=== PATIENT | female | born 1965 | race Caucasian/White ===

== ENCOUNTER 2019-03-17 17:23 | Observation (INO) ==
[2019-03-17] MEDS ORDERED: IOPAMIDOL 100 ML BOTTLE IV ONE (17:24)
[2019-03-17] MEDS ORDERED: ONDANSETRON 4 MG/2 ML VIAL IV ONE (17:37)
[2019-03-17] MEDS ORDERED: HYDROmorphone 2 MG/ML VIAL IV PRN ×2 (17:37→22:12)
[2019-03-17] MEDS ORDERED: 0.9 % SODIUM CHLORIDE 1,000 ML IV SCH ×3 (17:45→22:12)
[2019-03-17 17:50] LABS: POC Blood Urea Nitrogen 18 mg/dl (6-20); POC CO2 24 mmol/L (22-30); POC Calcium, Ionized 1.03 mmol/L (1.16-1.32); POC Chloride 96 mmol/L (96-108); POC Creatinine 0.6 mg/dl (0.6-1.1); POC Glucose, Random 258 mg/dL (70-105); POC Potassium 3.4 mmol/L (3.3-5.1); POC Sodium 134 mmol/L (133-145)
[2019-03-17 18:16] LABS: Basophils # (Auto) 0 K/mcL (0.0-0.3); Basophils % (Auto) 0 % (0.0-2.0); Eosinophils # (Auto) 0 K/mcL (0.0-0.7); Eosinophils % (Auto) 0.1 % (0.0-7.0); Granulocytes % (Auto) 89.3 % (38.0-78.0); Hematocrit 41.1 % (36.0-48.0); Hemoglobin 13.6 g/dL (12.0-15.0); Lymphocytes # (Auto) 1.1 K/mcL (1.5-4.8); Lymphocytes % (Auto) 9.7 % (15.5-49.0); Mean Cell Volume 87.7 fL (80.0-100.0); Mean Corpuscular HGB Conc 33.1 g/dL (31.0-36.0); Monocytes # (Auto) 0.1 K/mcL (0.1-0.9); Monocytes % (Auto) 0.9 % (1.0-12.0); Platelet Count 225 K/mcL (140-440); RBC 4.68 M/mcL (4.00-5.20); Red Cell Distribution Width 12.1 % (11.5-14.5); WBC 11.7 K/mcL (4.5-11.0)
[2019-03-17 18:33] LABS: ALT/SGPT 36 U/l (0-40); AST/SGOT 20 U/l (0-37); Albumin 4.3 gm/dL (3.2-5.2); Albumin/Globulin Ratio 1.6 (1.0-2.3); Alkaline Phosphatase 88 U/L (39-117); Bilirubin,Total 0.4 mg/dL (0.0-1.0); Blood Urea Nitrogen 18 mg/dl (6-20); Calcium 8.9 mg/dl (8.6-10.4); Carbon Dioxide 23 mmol/L (22-30); Globulin 2.7 gm/dL (2.2-3.7); Glomerular Filtration Rate 84; Glucose 261 mg/dL (70-105)
[2019-03-17 18:44] LABS: Chloride 92 mmol/L (96-108)
--- NOTE | 2019-03-17 18:56 | Emergency Department Note ---
SOB HPI - General Chief Complaint: Shortness of Breath/Dyspnea Stated Complaint: low sats Time Seen by Provider: 03/17/19 17:28 Source: patient, family Mode of arrival: other Limitations: no limitations - History of Present Illness 53-year-old female was brought over by the nurse diplomatic officer Xiomara, status post recovery from surgery. She had a bladder stimulator removed by Dr. Arce. After the surgery she became tachycardic tachypneic and short of breath requiring oxygen. She could not take a couple steps without requiring oxygen. She does not have a history of lung diseases. EKG and chest x-ray over there were unrevealing. She has brought over for further evaluation - Related Data Home Medications Medication Instructions Recorded Confirmed amlodipine 5 mg tablet 5 mg PO DAILY 02/28/19 03/17/19 atorvastatin 40 mg tablet 40 mg PO DAILY 02/28/19 03/17/19 estradiol 1 mg tablet 1 mg PO DAILY 02/28/19 03/17/19 solifenacin 5 mg tablet 5 mg PO DAILY 02/28/19 03/17/19 DULoxetine [Cymbalta] 20 mg PO HS 03/14/19 03/17/19 Previous Rx's Medication Instructions Recorded metformin 1,000 mg tablet 1,000 mg PO BID #60 tab 01/27/19 Allergies Allergy/AdvReac Type Severity Reaction Status Date / Time No Known Drug Allergies Allergy Verified 03/17/19 17:24 Review of Systems All systems ED: reviewed and negative except as stated. Past Medical History - Past Medical History Attestation: Yes: The following information was validated with the patient. [facility] Narrative: Family History (Last Reviewed 03/16/19 @ 12:40 by YOSEPH Garcia) Mother Stroke Psychiatric disorder Hypertension Heart disease Diabetes Arthritis Father Arthritis Grandmother Thyroid disease Hypertension Arthritis Grandfather Coronary heart disease Psychiatric disorder Hypertension Heart disease Arthritis Alcoholism Grandmother Thyroid disease Stroke Hypertension Arthritis Grandfather Hypertension Heart disease Arthritis Medical History (Last Reviewed 03/16/19 @ 12:40 by YOSEPH Garcia) Constipation (Chronic) Abdominal pain, epigastric (Chronic) Fibromyalgia (Chronic) Hyperlipidemia (Chronic) Insomnia (Chronic) Hypoglycemia (Chronic) Hyperhidrosis (Chronic) Hair loss (Chronic) Hot flashes (Chronic) Memory loss (Chronic) Menopausal symptoms (Chronic) Knee pain, bilateral (Chronic) Low back pain (Chronic) Cold sore (Chronic) Type 2 diabetes mellitus with hyperglycemia (Chronic) Neuropathy of left sciatic nerve (Chronic) Arthritis (Chronic) Fatigue (Chronic) Poor sleep (Chronic) Urine incontinence (Chronic) Headache (Chronic) Sciatic pain (Chronic) Depression (Chronic) HTN (hypertension) (Chronic) GERD (gastroesophageal reflux disease) (Chronic) Overactive bladder (Chronic) Past Surgical History (Last Reviewed 03/16/19 @ 12:40 by YOSEPH Garcia) History of colonoscopy (Chronic ~2008) History of hysterectomy (Chronic) History of bladder surgery (Chronic ~03/2015) History of neck surgery (Chronic ~09/2016) - Social History smoking status: Never smoker Physical Exam No acute distress resting without oxygen. Normocephalic atraumatic. Conjunctive are clear sclerae white nonicteric. No nasal discharge or congestion. Oropharynx pink and moist. Neck is supple without lymphadenopathy or thyromegaly or carotid bruit. Heart is regular rhythm but mildly tachycardic. Lungs are basically clear to auscultation bilaterally without wheezes rales rhonchi or respiratory distress. Abdomen is soft nontender nondistended. No pedal edema. Alert oriented able answer questions approp riately Limitations: no limitations Course Vital Signs Temperature 98.0 F 03/17/19 17:24 Pulse Rate 99 H 03/17/19 17:24 Respiratory Rate 20 03/17/19 17:24 Blood Pressure 152/80 03/17/19 17:24 Pulse Oximetry (%) 95 03/17/19 17:24 Temperature 98.0 F 03/17/19 17:24 Pulse Rate 97 H 03/17/19 21:01 Respiratory Rate 21 03/17/19 21:01 Blood Pressure 119/70 03/17/19 21:01 Pulse Oximetry (%) 93 03/17/19 21:01 Shortness of Breath/Dyspnea - Lab Data Lab results reviewed: Yes I reviewed the patient's lab results. Result diagrams: 03/17/19 17:43 03/17/19 17:43 Lab Results 03/17/19 03/17/19 Range/Units 17:43 17:43 WBC 11.7 H (4.5-11.0) K/mcL RBC 4.68 (4.00-5.20) M/mcL Hgb 13.6 (12.0-15.0) g/dL Hct 41.1 (36.0-48.0) % POC Hct 42.0 (36.0-48.0) % MCV 87.7 (80.0-100.0) fL MCH 29.0 (26.0-34.0) pg MCHC 33.1 (31.0-36.0) g/dL RDW 12.1 (11.5-14.5) % Plt Count 225 (140-440) K/mcL MPV 8.0 (7.4-10.4) fL Gran % 89.3 H (38.0-78.0) % Lymph % (Auto) 9.7 L (15.5-49.0) % [place] % (Auto) 0.9 L (1.0-12.0) % Eos % (Auto) 0.1 (0.0-7.0) % Baso % (Auto) 0 (0.0-2.0) % Gran # 10.5 H (1.8-8.0) K/mcL Lymph # (Auto) 1.1 L (1.5-4.8) K/mcL [place] # (Auto) 0.1 (0.1-0.9) K/mcL Eos # (Auto) 0 (0.0-0.7) K/mcL Baso # (Auto) 0 (0.0-0.3) K/mcL POC Sodium 134 (133-145) mmol/L Sodium 131 L (133-145) mmol/L POC Potassium 3.4 (3.3-5.1) mmol/L Potassium 3.4 (3.3-5.1) mmol/L POC Chloride 96 (96-108) mmol/L Chloride 92 L (96-108) mmol/L Carbon Dioxide 23 (22-30) mmol/L POC Total CO2 24 (22-30) mmol/L Anion Gap 16.0 (8-16) POC BUN 18 (6-20) mg/dl BUN 18 (6-20) mg/dl Creatinine 0.8 (0.6-1.1) mg/dl POC Creatinine 0.6 (0.6-1.1) mg/dl GFR Calculation 84 Glucose 261 H (70-105) mg/dL POC Glucose 258 H (70-105) mg/dL Calcium 8.9 (8.6-10.4) mg/dl POC WB Ioniz Calcium 1.03 L (1.16-1.32) mmol/L Total Bilirubin 0.4 (0.0-1.0) mg/dL AST 20 (0-37) U/l ALT 36 (0-40) U/l Alkaline Phosphatase 88 (39-117) U/L Total Protein 7.0 (5.9-8.4) gm/dL Albumin 4.3 (3.2-5.2) gm/dL Globulin 2.7 (2.2-3.7) gm/dL Albumin/Globulin Ratio 1.6 (1.0-2.3) - Radiology Data Radiology results reviewed: Yes I reviewed the patient's radiology results. CT scan of the chest angiogram shows no evidence of pulmonary emboli or reason for her hypoxia - EKG Data EKG attestation: Yes I reviewed and interpreted this EKG., Yes There are no EKG findings of acute coronary syndrome, Yes This EKG will be read by program director substance abuse EKG results narrative: EKG shows rate of 95 sinus rhythm with flattened T waves in the inferior leads as well as the anterior leads. This is nonspecific. Left axis deviation is seen as well. Compared with the EKG from 8:00 this morning the left axis deviation is new but otherwise there is no significant change Disposition Pt seen by AIRCONDITIONING DRAFTING OFFICER/PA only: No Clinical Impression: Hypoxia Anesthesia complication Qualifiers: Encounter type: initial encounter Qualified Code(s): T41.45XA - Adverse effect of unspecified anesthetic, initial encounter Summary: Shortness of breath status post surgery will rule out pulmonary emboli with CTA and laboratory for other concerning features. Not requiring oxygen at this time. Will treat pain in interim CTA is negative as well as her chest x-ray . Laboratory is unrevealing. On reassessment her oxygen saturations dropped into high 80s on room air. ABG shows hypoxia with a PO2 of 54. She is placed on nasal cannula oxygen. We repeated EKG and add a troponin. EKG is unrevealing. We do not find a reason for her hypoxia except for prolonged recovery from anesthesia/surgery. Discussed case with Dr. Arnett, hospitalist who agreed except the patient for observation overnight and oxygen therapy Disposition: Xfer As Outpt/Obs ([facility]) Condition: Fair Referrals: Nathan Qureshi ARNP [Primary Care Provider] - Hoang Arce MD [Physician] -
--- NOTE | 2019-03-17 20:16 | Cat Scan Report ---
CLINICAL INFORMATION: Tachycardia COMPARISON: Chest x-ray dated 03/17/2019 TECHNIQUE: Axial images obtained through the chest. 70ml Isovue 370 injected intravenously, and scanning was performed during pulmonary arterial phase. Sagittally and coronally reformatted images were obtained. MIP reformatted images. FINDINGS: Lungs:Lungs are negative. No parenchymal infiltrate or mass. No noncalcified nodules. There is no centrilobular emphysema. No honeycombing. No interlobular septal thickening. Mediastinum, vascular:Main pulmonary artery, right pulmonary artery, left pulmonary artery are negative. No intraluminal filling defects. No lobar, segmental, or subsegmental abnormalities. Negative examination for pulmonary embolism. Thoracic aorta is negative. No dilatation. No significant calcification. Heart:Heart size is within normal limits. There is calcification of the left anterior descending coronary artery. This is considered advanced for age. No pericardial effusion. Pleura:No pleural fluid. No pleural-based mass Axilla, supraclavicular regions, chest wall:No pathologic axillary adenopathy. No supraclavicular adenopathy. There is a 16 mm right thyroid nodule. Follow-up thyroid ultrasound recommended Musculoskeletal:Normal thoracic vertebral body heights. No compression deformities. Sternum and ribs are negative. Upper Abdomen:Marked hepatic steatosis. No focal hepatic mass. Liver contour is smooth. Upper abdomen is otherwise negative. Patient has undergone previous cholecystectomy Examination was initially interpreted by [facility] IMPRESSION: 1. Negative pulmonary CTA. No pulmonary embolism 2. Calcified coronary artery disease with calcification in the left anterior descending coronary artery 3. 16 mm right thyroid nodule 4. Severe hepatic steatosis. No hepatic mass The exam was performed using radiation dose optimization techniques including, but not limited to, automated exposure control, adjustment of the mA and/or kV according to patient size and use of iterative reconstruction technique. Interpreted and Authenticated by: Jerad Bashir 03/17/19
--- NOTE | 2019-03-17 21:32 | Internal Med History&Physical ---
Medical - H&P: [facility] Patient information: Note initiated : 03/17/19 at 9:30 pm Service Date, if different from initiated Date: [] Patient: Becka Laboy a 53 y/o F admitted on for low sats. Chief Complaint: [] Chief complaint: Shortness of breath and chest pounding History of present illness: Ms. Laboy is a 53 year old F with history of diabetes/hypertension and obesity who underwent bladder stimulator removal by urology early this morning however shortly after procedure patient became short of breath and complains of chest discomfort and pounding sensation. Her symptoms lasted long enough that she was sent to the ER for further evaluation. Initial work-up was essentially unrema rkable with normal EKG/troponins however she remained tachycardic tachypneic and short of breath requiring oxygen. She denies any prior similar episodes or history of asthma or reaction to anesthetics. Patient was kept in the ER for good 6 hours however despite interventions her symptoms persisted. Sodium 131, glucose 258, white count 11.7. Subsequently hospitalist service was consulted for admission. At the time evaluation patient is alert and oriented. She denies active distress except for shortness of breath. She denies changes in medications. She denies weight loss/cough/productive sputum or hemoptysis. She further denies fever rash headache photophobia. Review of systems A 10 point review system was performed and is negative except discussed above Medical - H&P: PMH Medical history: Constipation (Chronic) Abdominal pain, epigastric (Chronic) Fibromyalgia (Chronic) Hyperlipidemia (Chronic) Insomnia (Chronic) Hypoglycemia (Chronic) Hyperhidrosis (Chronic) Hair loss (Chronic) Hot flashes (Chronic) Memory loss (Chronic) Menopausal symptoms (Chronic) Knee pain, bilateral (Chronic) Low back pain (Chronic) Cold sore (Chronic) Type 2 diabetes mellitus with hyperglycemia (Chronic) Neuropathy of left sciatic nerve (Chronic) Arthritis (Chronic) Fatigue (Chronic) Poor sleep (Chronic) Urine incontinence (Chronic) Headache (Chronic) Sciatic pain (Chronic) Depression (Chronic) HTN (hypertension) (Chronic) GERD (gastroesophageal reflux disease) (Chronic) Overactive bladder (Chronic) Surgical History History of colonoscopy (Chronic ~2008) History of hysterectomy (Chronic) History of bladder surgery (Chronic ~03/2015) Bladder stimulator History of neck surgery (Chronic ~09/2016) 2010, 2007 & 09/2016 Family History Mother Stroke Psychiatric disorder Hypertension Heart disease Diabetes Arthritis Father Arthritis Grandmother Thyroid disease Maternal Hypertension Maternal Arthritis Maternal Grandfather Coronary heart disease Maternal Psychiatric disorder Maternal Hypertension Maternal Heart disease Maternal Arthritis Maternal Alcoholism Maternal Grandmother Thyroid disease Paternal Stroke Paternal Hypertension Paternal Arthritis Paternal Grandfather Hypertension Paternal Heart disease Paternal Arthritis Paternal Social History household members: alone marital status: frequency: daily smoking status: Never smoker alcohol intake frequency: a few times a week substance use type: does not use Medical - H&P: Meds Home Medications Medication Instructions Recorded Confirmed Type metformin 1,000 mg tablet 1,000 mg PO BID #60 tab 01/27/19 03/18/19 Rx amlodipine 5 mg tablet 5 mg PO DAILY 02/28/19 03/18/19 History atorvastatin 40 mg tablet 40 mg PO DAILY 02/28/19 03/18/19 History estradiol 1 mg tablet 1 mg PO DAILY 02/28/19 03/18/19 History DULoxetine [Cymbalta] 20 mg PO HS 03/14/19 03/18/19 History Allergies Allergy/AdvReac Type Severity Reaction Status Date / Time No Known Drug Allergies Allergy Verified 03/17/19 17:24 Medical - H&P: Exam - Constitutional Vitals: Temp Pulse Resp BP Pulse Ox 98.0 F 97 H 21 119/70 93 03/17/19 17:24 03/17/19 21:01 03/17/19 21:01 03/17/19 21:01 03/17/19 21:01 General appearance: no acute distress, obese Exam: Alert oriented head normocephalic Eye movement symmetrical No ear nose discharge Oral cavity dry Neck no lymphadenopathy S1-S2 regular rhythm no murmur Diminished breath sounds bases Abdomen soft nontender Lower extremity no cyanosis clubbing no joint swelling Skin no suspicious lesion Psych alert cooperative Neuro nonfocal Medical - H&P: Reslt - Labs CBC & Chem 7: 03/18/19 04:00 03/18/19 04:00 Labs: Short CBC 03/17/19 Range/Units 17:43 WBC 11.7 H (4.5-11.0) K/mcL Hgb 13.6 (12.0-15.0) g/dL Hct 41.1 (36.0-48.0) % Plt Count 225 (140-440) K/mcL BMP 03/17/19 17:43 Sodium 131 L Potassium 3.4 Chloride 92 L Carbon Dioxide 23 BUN 18 Creatinine 0.8 Glucose 261 H Calcium 8.9 Cardiac Enzymes 03/17/19 Range/Units 17:43 Troponin T < 0.01 (0-0.03) ng/ml Liver Function 03/17/19 Range/Units 17:43 Total Bilirubin 0.4 (0.0-1.0) mg/dL AST 20 (0-37) U/l ALT 36 (0-40) U/l Alkaline Phosphatase 88 (39-117) U/L Albumin 4.3 (3.2-5.2) gm/dL Medical - H&P: A/P (1) Anesthesia complication Current visit: Yes Status: Acute * Postoperative dyspnea with hypoxia-no evidence of ACS/PE/aspiration or pneumonia. Clinically improving however not quite at baseline. Still requiring 2 L oxygen. Continue pulmonary toilet/incentive spirometer use/supplemental oxygen bronchodilators. Echocardiogram to rule out out cardiac etiology. * History of hypertension continue home medications including amlodipine * Hypothyroidism start home dose thyroxine * Hyperlipidemia continue statin * DM type II continue CC diet/prandial insulin hold metformin * Anxiety disorder continue duloxetine * Full code * Prophylaxis heparin Plan * Observation admit * Echocardiogram * Supplemental oxygen/pulmonary toilet/incentive spirometer use * Pre-existing medical condition management as above * Discharge planning
[2019-03-17] MEDS ORDERED: DEXTROSE 31 GM ORAL.SUSP PO PRN (22:12)
[2019-03-17] MEDS ORDERED: ONDANSETRON 4 MG/2 ML VIAL IV PRN (22:12)
[2019-03-17] MEDS ORDERED: POTASSIUM CHLORIDE 20 MEQ PACKET PO PRN (22:12)
[2019-03-17] MEDS ORDERED: ONDANSETRON 4 MG ODT TABLET SL PRN (22:12)
[2019-03-17] MEDS ORDERED: ACETAMINOPHEN 325 MG TABLET PO PRN (22:12)
[2019-03-17] MEDS ORDERED: BISACODYL 10 MG SUPP.RECT PR PRN (22:12)
[2019-03-17] MEDS ORDERED: POLYETHYLENE GLYCOL 3350 17 GM PACKET PO PRN (22:12)
[2019-03-17] MEDS ORDERED: MAGNESIUM SULFATE 2 GM/50 ML BAG IV PRN (22:12)
[2019-03-17] MEDS ORDERED: MELATONIN 3 MG TABLET PO PRN (22:12)
[2019-03-17] MEDS ORDERED: IPRATROPIUM/ALBUTEROL 3 ML AMPUL.NEB NEB PRN (22:12)
[2019-03-17] MEDS ORDERED: DEXTROSE 50% 50 ML VIAL IV PRN (22:12)
[2019-03-17] MEDS ORDERED: ACETAMINOPHEN 650 MG/65 ML BOTTLE IV PRN (22:12)
[2019-03-17] MEDS: 0.9 % SODIUM CHLORIDE 10 ML SYRINGE IV SCH (22:27)
[2019-03-18] MEDS ORDERED: ACETAMINOPHEN 1,000 MG/100 ML BOTTLE IV ONE (00:10)
[2019-03-18 05:18] LABS: Hematocrit 38.7 % (36.0-48.0); Hemoglobin 12.8 g/dL (12.0-15.0); Mean Cell Volume 88.2 fL (80.0-100.0); Mean Corpuscular HGB Conc 33.1 g/dL (31.0-36.0); Mean Platelet Volume 8.1 fL (7.4-10.4); Platelet Count 242 K/mcL (140-440); RBC 4.39 M/mcL (4.00-5.20); Red Cell Distribution Width 11.9 % (11.5-14.5); WBC 11.5 K/mcL (4.5-11.0)
[2019-03-18 06:14] LABS: ALT/SGPT 33 U/l (0-40); AST/SGOT 19 U/l (0-37); Albumin/Globulin Ratio 1.5 (1.0-2.3); Alkaline Phosphatase 78 U/L (39-117); Bilirubin,Direct < 0.2 mg/dL (0.0-0.3); Bilirubin,Total 0.3 mg/dL (0.0-1.0); Blood Urea Nitrogen 13 mg/dl (6-20); Calcium 9.4 mg/dl (8.6-10.4); Carbon Dioxide 23 mmol/L (22-30); Chloride 100 mmol/L (96-108); Globulin 2.6 gm/dL (2.2-3.7); Glomerular Filtration Rate 84; Glucose 289 mg/dL (70-105); Lactate Dehydrogenase 161 U/L (94-250); Phosphorous 2.5 mg/dL (2.7-4.5); Triglycerides 106 mg/dl (<150); Uric Acid 6.4 mg/dL (2.5-8.0)
[2019-03-18] MEDS: 0.9 % SODIUM CHLORIDE 10 ML SYRINGE IV SCH ×2 (06:34→18:37)
[2019-03-18 07:53] LABS: Lymphocytes % 8 % (15-49); Monocytes % (Manual) 1 % (1-12); Platelet Estimate NORMAL (NORMAL); RBC Morphology NORMAL (NORMAL); Segmented Neutrophils % 91 % (38-78)
[2019-03-18] MEDS: INSULIN LISPRO 1 UNIT/0.01 ML UNIT SQ SCH ×2 (08:24→12:12)
[2019-03-18] MEDS ORDERED: DOCUSATE SODIUM 100 MG CAPSULE PO SCH (09:00)
[2019-03-18] MEDS ORDERED: BUDESONIDE 0.5 MG/2 ML AMPUL.NEB NEB SCH (09:00)
[2019-03-18] MEDS ORDERED: HEPARIN 5,000 UNIT/ML VIAL SQ SCH (09:00)
[2019-03-18] MEDS ORDERED: MULTIVIT,THER IRON,CA,FA & MIN 1 TABLET PO SCH (09:00)
--- NOTE | 2019-03-18 11:58 | Discharge Summary ---
Medical - DS: Prov Patient information: Note initiated : 03/18/19 at 11:56 am Service Date, if different from initiated Date: [] Patient: Becka Laboy 53 y/o F admitted on 03/17/19 for low sats. Chief Complaint: [] Date of admission: 03/17/19 22:07 Discharge date: 03/18/19 Primary care physician: Nathan Qureshi Consults: 03/17/19 Consult to Physician [CONS] Stat Comment: Consulting Provider: Lincoln Arnett Reason For Exam: Physician to Consult Medical - DS: Meds - Discharge Medications Active and Home Medications: Home Medications metformin 1,000 mg tablet 1,000 mg PO BID #60 tab 01/27/19 [Rx Confirmed 03/18/19 Last Taken 03/17/19 06:00] amlodipine 5 mg tablet 5 mg PO DAILY 02/28/19 [History Confirmed 03/18/19 Last Taken 03/17/19 06:30] atorvastatin 40 mg tablet 40 mg PO DAILY 02/28/19 [History Confirmed 03/18/19 Last Taken 03/16/19 21:30] estradiol 1 mg tablet 1 mg PO DAILY 02/28/19 [History Confirmed 03/18/19 Last Taken 03/16/19 09:00] DULoxetine [Cymbalta] 20 mg PO HS 03/14/19 [History Confirmed 03/18/19 Last Taken 03/16/19 21:30] Medical - DS: Hosp Hospital Course: Discharge diagnosis * Acute drug reaction with dyspnea. Clinically resolved * Postoperative hypoxia-no evidence of ACS/PE/aspiration or pneumonia. Likely anesthetic reaction now fully resolved. Await echocardiogram results. However no evidence of failure on chest imaging. Now on room air. Clinically resolved. * History of hypertension -continue home medications * Hypothyroidism continue home dose thyroxine * Hyperlipidemia continue statin * DM type II continue CC diet/prandial insulin , restart metformin * Anxiety disorder managed on duloxetine Brief hospital course Ms. Laboy is a 53 year old F with history of diabetes/hypertension and obesity who underwent bladder stimulator removal by urology early this morning however shortly after procedure patient became short of breath and complains of chest discomfort and pounding sensation. Her symptoms lasted long enough that she was sent to the ER for further evaluation. Initial work-up was essentially unremarkable with normal EKG/troponins however she remained tachycardic tachypneic and short of breath requiring oxygen. She denies any prior similar episodes or history of asthma or reaction to anesthetics. Patient was kept in the ER for good 6 hours however despite interventions her symptoms persisted. Sodium 131, glucose 258, white count 11.7. Subsequently hospitalist service was consulted for admission. At the time evaluation patient is alert and oriented. She denies active distress except for shortness of breath. She denies changes in medications. She denies weight loss/cough/productive sputum or hemoptysis. She further denies fever rash headache photophobia. 03/18-patient doing well. No overnight fever chills shortness of breath. On room air. Chest imaging no evidence of cardiac or pulmonary etiology. No PE. Clinically back at baseline. Likely an acute drug reaction. Discharging advised to follow with primary care physician. Echocardiogram results pending and will be faxed to primary care physician Discharge diagnosis: . - Time Spent with Patient Total time spent providing and/or coordinating discharge services: Greater than 30 minutes Medical - DS: Exam - Constitutional Vitals: Vital Signs Temp Pulse Pulse Resp BP BP Pulse Ox 03/18/19 09:50 96 H 14 93 03/18/19 08:00 98.5 F 97 H 16 113/73 93 03/18/19 03:35 98.5 F 86 12 119/76 93 03/18/19 00:37 98 F 96 H 16 120/75 93 03/17/19 22:44 98 03/17/19 22:30 97.8 F 103 H 18 138/83 95 03/17/19 21:31 95 H 20 121/83 92 03/17/19 21:01 97 H 21 119/70 93 03/17/19 20:31 99 H 22 124/77 92 03/17/19 20:01 98 H 22 125/79 89 L 03/17/19 19:31 98 H 21 126/74 90 03/17/19 19:29 100 H 18 127/72 90 03/17/19 18:01 101 H 17 139/77 91 03/17/19 17:50 99 H 18 142/80 92 03/17/19 17:24 98.0 F 99 H 20 152/80 95 Intake and Output 03/17/19 03/18/19 03/18/19 21:59 05:59 13:59 Intake Total 425 1040 Output Total 1600 700 Balance -1175 340 Intake: IV 65 Oral 360 1040 Output: Void Amount 1600 700 Other: Meal 1x yogurt, 2pk saltines, 1 pk grahm crackers Breakfast Percent of Meal Consumed 100% 100% Feeding Ability Independent Independent Urine Appearance Clear Urine Color Bright Yellow Dark Yellow Weight 217 lb 217 lb Medical - DS: Data Labs on day of discharge: Labs from last 24 hours 03/18/19 03/18/19 03/17/19 04:00 04:00 17:43 WBC 11.5 H RBC 4.39 Hgb 12.8 Hct 38.7 POC Hct MCV 88.2 MCH 29.2 MCHC 33.1 RDW 11.9 Plt Count 242 MPV 8.1 Gran % Lymph % (Auto) [place] % (Auto) Eos % (Auto) Baso % (Auto) Gran # Lymph # (Auto) [place] # (Auto) Eos # (Auto) Baso # (Auto) Total Counted 100 Seg Neutrophils % 91 H Band Neutrophils % Not Reportable Lymphocytes % 8 L Monocytes % (Manual) 1 Platelet Estimate Normal RBC Morphology Normal POC Sodium Sodium 137 POC Potassium Potassium 4.1 POC Chloride Chloride 100 Carbon Dioxide 23 POC Total CO2 Anion Gap 14.0 POC BUN BUN 13 Creatinine 0.8 POC Creatinine GFR Calculation 84 Glucose 289 H POC Glucose Uric Acid 6.4 Calcium 9.4 POC WB Ioniz Calcium Phosphorus 2.5 L Magnesium 1.8 Total Bilirubin 0.3 Direct Bilirubin < 0.2 GGT 185 H AST 19 ALT 33 Alkaline Phosphatase 78 Lactate Dehydrogenase 161 Troponin T < 0.01 Total Protein 6.6 Albumin 4.0 Globulin 2.6 Albumin/Globulin Ratio 1.5 Triglycerides 106 03/17/19 03/17/19 17:43 17:43 WBC 11.7 H RBC 4.68 Hgb 13.6 Hct 41.1 POC Hct 42.0 MCV 87.7 MCH 29.0 MCHC 33.1 RDW 12.1 Plt Count 225 MPV 8.0 Gran % 89.3 H Lymph % (Auto) 9.7 L [place] % (Auto) 0.9 L Eos % (Auto) 0.1 Baso % (Auto) 0 Gran # 10.5 H Lymph # (Auto) 1.1 L [place] # (Auto) 0.1 Eos # (Auto) 0 Baso # (Auto) 0 Total Counted Seg Neutrophils % Band Neutrophils % Lymphocytes % Monocytes % (Manual) Platelet Estimate RBC Morphology POC Sodium 134 Sodium 131 L POC Potassium 3.4 Potassium 3.4 POC Chloride 96 Chloride 92 L Carbon Dioxide 23 POC Total CO2 24 Anion Gap 16.0 POC BUN 18 BUN 18 Creatinine 0.8 POC Creatinine 0.6 GFR Calculation 84 Glucose 261 H POC Glucose 258 H Uric Acid Calcium 8.9 POC WB Ioniz Calcium 1.03 L Phosphorus Magnesium Total Bilirubin 0.4 Direct Bilirubin GGT AST 20 ALT 36 Alkaline Phosphatase 88 Lactate Dehydrogenase Troponin T Total Protein 7.0 Albumin 4.3 Globulin 2.7 Albumin/Globulin Ratio 1.6 Triglycerides Medical - DS: A/P - Patient/Caregiver Discharge Instructions Activity: increase activity as tolerated Diet: Consistent Carbohydrate Additional Instructions: Please fax echocardiograms to PCP office Follow-up with urology as advised by urology Continue prior home medications Return to ER if worsening shortness of breath chest pain - Problem Maintenance (1) Anesthesia complication Status: Acute Qualifiers: Encounter type: initial encounter Qualified Code(s): T41.45XA - Adverse effect of unspecified anesthetic, initial encounter - Follow up Plan Follow up with: Nathan Qureshi ARNP [Primary Care Provider] - Hoang Arce MD [Physician] - Disposition: Home, Self-Care Prognosis: Fair Rehab Potential: Fair I certify that the patient requires SNF services: No Overall status at discharge: patient is progressing back to baseline Medical - DS: Qual - VTE Deep Vein Thrombosis/Pulmonary Embolism Present on Admission: No
[2019-03-18] MEDS ORDERED: SENNOSIDES/DOCUSATE SODIUM 1 TAB TABLET PO SCH (21:00)
== END 2019-03-18 14:00 | disposition home or self-care (01) ==
LOC: MEDSUR 17:23 → ED 17:23 → MEDSUR 22:07
PROVIDERS: ADMIT Internal Medicine; ATTEND Internal Medicine